=== PATIENT | female | born 1965 | race Caucasian/White ===

== ENCOUNTER → 2016-10-19 | Outpatient (CLI) | payer OTHER ==
[~2016-10-19] MED LIST: ALBUTEROL17 GM INH; ALEVE220 M1 PO; AUGMENTIN875 M1 PO; BACLOFEN10 MG PO; CARAFATE1 G PO; CARAFATE1 GM PO; CATAFLAM50 MG PO; COMBIVENT INH14.7 GM INH; COMBIVENT U/D3 M2 INH; DEXAMETHASONE4 MG PO; DICYCLOMINE HCL20 MG PO; DIFLUCAN100 MG PO; DOXYCYCLINE PO; DULERA 100 MCG/13 GM INH; FLEXERIL10 MG PO; FOLIC ACID1 MG PO; GABAPENTIN400 M2 PO; IBUPROFEN PM C1 EACH; IBUPROFEN PM C1 EACH PO; IBUPROFEN200 M1 PO; LANSOPRAZOLE30 M3 PO; LIDOCAINE15 GM; LORTAB 10-5001 EACH PO; MEDROL DOSEPAK4 MG PO; NICOTINE TRANSD21 MG EXT; NO MEDICATIONS; OXYCODONE HCL10 MG PO; OXYCODONE HCL5 M1 PO; PERCOCET 10/31 UDTA1 PO; PERCOCET PO; PERCOCET10 PO; PHENERGAN12.5 M1 PO; PHENERGAN25 MG PO; PREDNISONE PO; PRILOSEC20 M1 PO; PROAIR HFA8.5 GM IH; PROTONIX PO; ROBITUSSIN A-C10 ML PO; STIOLTO RESPIMAT4 GM INH; THIAMINE HCL100 MG PO; TRAZADONE; TUSSIONEX PENN473 ML PO; XANAX0.5 MG PO; ZOFRAN ODT4 MG PO; ZOFRAN PO; ZOFRAN8 MG PO; [UNRECOGNIZED DRUG - REMARK] PO
--- NOTE | ~2016-10-19 | CT55 ---
[facility] A Service of [facility] & [facility] RADIOLOGY TEXT RESULTS PATIENT: KELSEY KIMBALL [facility] [birth year] [facility] #: [id number] AGE: [address]: Isamar Langley MD SEX: F ORDER DR: [id number] [facility] [address] [place], [place] [address] [id number] O MR#: [id number] [facility] #: [id number] NAME: KELSEY KELLY : 1965 SEX: F STUDY DATE/TIME: 10/19/2016 14:29 UNIT: [facility] ROOM: STUDY DESCRIPTION: CT Chest W Con Attending Physician: Isamar Langley M.D. Referring Physician: Isamar Langley M.D. Ordering Physician: Isamar Langley M.D. Primary Care Physician: Serena Ritter M.D. MEDICAL IMAGING REPORT This report is preliminary unless electronic signature is present EXAM CT of the chest with contrast INDICATION Followup lung cancer. TECHNIQUE CT of the chest was performed following administration of IV contrast. Coronal and sagittal reformatted images were obtained. COMPARISON 07/15/[address] exam was performed with one or more of the following radiation dose reduction techniques: automatic exposure control, adjustment of mA and/or kV according to patient size, and iterative reconstruction. FINDINGS Emphysema. There is increasing perihilar density and bronchiectasis mainly within the superior segment of the left lower lobe. There is a small ground-glass opacity in the lung base of the left lower lobe on image 51 and some minimal ground-glass opacities in the left upper lobe on image 19. There is some minimal ground-glass opacities anteriorly in the right lung within the middle lobe and also the lower portion of the right upper lobe. There is no pleural effusion or suspicious lymphadenopathy. Limited imaging of the upper abdomen is unremarkable. Bone windows demonstrate healing or multiple healing rib fractures on the right. IMPRESSION 1. Increased perihilar density and bronchiectasis in the superior segment in the left lower lobe felt to represent increasing atelectasis/scarring from prior treatments. 2. There are scattered patchy ground-glass opacities in the lungs as STS. [facility] A Service of [facility] & [facility] RADIOLOGY TEXT RESULTS PATIENT: KEL[facility] KIMBALL [id number] [birth year] UNIT #: [id number] AGE: [address]: Isamar Langley MD SEX: F ORDER DR: described above likely infectious or inflammatory. 3. Stable underlying emphysema. 4. No lymphadenopathy. Dictated by... Moe Valles M.D. THIS IS AN ELECTRONICALLY VERIFIED REPORT Moe Valles M.D. at 10/21/2016 7:45 AM ROBERT/pal TD: 10/20/2016 18:25 JOB #: [id number] MEDICAL IMAGING REPORT Page 1 of 1 COPY
== END | disposition home or self-care (01) ==
LOC: CCAT 13:20
DX: C34.82 Malignant neoplasm of overlapping sites of left bronchus and lung (principal); C34.12 Malignant neoplasm of upper lobe, left bronchus or lung; J47.9 Bronchiectasis, uncomplicated; J43.9 Emphysema, unspecified; R22.1 Localized swelling, mass and lump, neck
CPT/HCPCS: 71260; Q9967

== ENCOUNTER → 2016-11-05 | Outpatient (CLI) | payer OTHER ==
--- NOTE | ~2016-11-05 | CT114 ---
[facility] A Service of [facility] & [facility] RADIOLOGY TEXT RESULTS PATIENT: KELSEY KIMBLAL LOCATION: [facility] : [birth year] UNIT #: [id number] AGE: [address]: Isamar Langley MD SEX: F ORDER DR: [id number] [facility] [address] [place], [place] [address] [id number] O MR#: [id number] Acc #: [id number] NAME: KELSEY KIMBALL : 1965 SEX: F STUDY DATE/TIME: 11/05/2016 14:21 UNIT: [facility] ROOM: STUDY DESCRIPTION: CT Soft Tissue Neck W Cont Attending Physician: Isamar Langley M.D. Referring Physician: Isamar Langley M.D. Ordering Physician: Isamar Langley M.D. Primary Care Physician: Serena Ritter M.D. MEDICAL IMAGING REPORT This report is preliminary unless electronic signature is present EXAM Soft tissue neck CT with contrast, 11/05/16. PROCEDURE Axial contrast-enhanced soft tissue neck CT with multiplanar reformats. This CT exam was performed with one or more of the following radiation dose reduction techniques: automatic exposure control, adjustment of mA and/or kV according to patient size, and iterative reconstruction. COMPARISON None. CLINICAL HISTORY Two week history of dysphasia, and right neck mass, history of lung cancer in August 2015. FINDINGS There are several highly suspicious right jugular chain lymph nodes. These demonstrate rim enhancement with central low density. There is a cluster of 2 or 3 along the right jugular chain, extending from the tail of the parotid to the angle of the mandible. There may be 1 up to 2.3 cm in maximal dimension, but there are no right jugular chain nodes below the hyoid and there are no left jugular chain nodes. There is a small enhancing lesion near the right glossopharyngeal fold, and there is right glossopharyngeal fold fullness, worrisome for a small squamous cell carcinoma, recommend correlation with physical exam. This may measure 13 mm or more in size. The vascular structures are remarkable for plaque at the right carotid bifurcation and left carotid bifurcation is probably 0% left and no more than 10 to 20% right ICA stenosis by NASCET criteria. [facility] A Service of [facility] & [facility] RADIOLOGY TEXT RESULTS PATIENT: KELSEY KIMBALL LOCATION: [facility] : 69 UNIT #: [id number] AGE: [address]: Isamar Langley MD SEX: F ORDER DR: The lung apices demonstrate emphysematous change, but no nodules. The bony structures are unremarkable. IMPRESSION 1. There is a small cluster of right level 2 suspicious lymph nodes with rim enhancement and low density centers, corresponding to the palpable abnormality and suspicious for metastatic adenopathy. These only involve the right level 2 and don't extend lower and there are no contralateral nodes. Question an enhancing mass in the region of right glossopharyngeal fold, up to 13 mm in size. Correlate with physical exam, but this may represent a squamous cell carcinoma and may be the source of the right jugular chain lymphadenopathy rather than the previous lung primary. 2. Again, no contralateral nodes are seen. Exam is otherwise unremarkable. Dictated by... Pablo Cai M.D. THIS IS AN ELECTRONICALLY VERIFIED REPORT Pablo Cai M.D. at 11/06/2016 2:16 PM MEÑO/judah TD: 11/05/2016 20:27 JOB #: [id number] MEDICAL IMAGING REPORT Page 1 of 1 COPY
== END | disposition home or self-care (01) ==
LOC: CCAT 12:55
DX: C34.82 Malignant neoplasm of overlapping sites of left bronchus and lung (principal)
CPT/HCPCS: 70491; Q9967

== ENCOUNTER → 2017-01-28 | Outpatient (CLI) | payer OTHER ==
[~2017-01-28] VITALS: Ht 162.6 cm; Wt 48.1 kg
--- NOTE | ~2017-01-28 | XA91 ---
[facility] A Service of [facility] & [facility] RADIOLOGY TEXT RESULTS PATIENT: KELSEY KIMBALL LOCATION: [facility] : 69 UNIT #: [id number] AGE: [address]: Otoniel Hudson MD SEX: F ORDER DR: [id number] [facility] [address] [place], [place] [address] [id number] O MR#: [id number] Acc #: [id number] NAME: KELSEY KIMBALL : 1965 SEX: F STUDY DATE/TIME: 01/28/2017 10:29 UNIT: [facility] ROOM: STUDY DESCRIPTION: XA CVC Tunneled W Port Attending Physician: Otoniel Hudson M.D. Ordering Physician: Otoniel Hudson M.D. Primary Care Physician: Ale Forrest M.D. MEDICAL IMAGING REPORT This report is preliminary unless electronic signature is present EXAM Fscamz-[id number]-[id number] catheter insertion 01/28/2017 HISTORY Recurrent lung cancer. PROCEDURE Informed consent was obtained. Full standard sterile technique was utilized, including sterile preparation, barrier draping, sterile gowns, gloves, caps and masks. Real-time sterile ultrasound guidance was used to both guide venous access and confirm vessel patency, and fluoroscopic guidance was used to confirm catheter tip position. Total fluoro time 0.4 minutes with a single spot image obtained. Fentanyl and Versed were administered for IV conscious sedation with hemodynamic monitor provided by the nursing staff throughout the procedure. The procedure total sedation time 45 minutes. Following local anesthesia, the right internal jugular vein was accessed via standard Seldinger technique, track dilated and a peel-away sheath inserted. A pocket was then created over the right upper chest after local anesthesia, and using a combination of blunt and sharp dissection. Port-A-Cath hub was inserted in the pocket, and then the catheter tunneled through the venotomy site, and then measured and cut to length and inserted via the peel-away sheath. The port was accessed, confirming blood return and easy flushing, and then it was packed with a heparin solution. The venotomy site was closed with deep fascial 3-0 Vicryl suture and N-butyl cyanoacrylate glue, and the hub pocket was closed with deep fascial 3-0 interrupted Vicryl suture and running subcuticular 4-0 Monocryl suture and N-butyl cyanoacrylate glue. There were no complications, and the patient tolerated the procedure well. [facility] A Service of [facility] RADIOLOGY TEXT RESULTS PATIENT: KELSEY KIMBALL LOCATION: [facility] : [birth year] UNIT #: [id number] AGE: [address]: Otoniel Hudson MD SEX: F ORDER DR: QI Successful fluoroscopic and ultrasound-guided insertion of a right IJ Cfzlqs-U-Tjgz catheter without complication. Dictated by... Pablo Cai M.D. THIS IS AN ELECTRONICALLY VERIFIED REPORT Pablo Cai M.D. at 01/29/2017 4:05 PM MEÑO/dayday TD: 01/28/2017 17:49 JOB #: [id number] MEDICAL IMAGING REPORT Page 1 of 1 COPY
[2017-01-28 08:31] LABS: HEMATOCRIT 40.1 % (35.0-45.0); HEMOGLOBIN 13.6 gm/dL (12.0-16.0); MEAN CELL VOLUME 94.8 FL (83-96); MEAN CORPUSCULAR HEMOGLOBIN 32.2 PG (28-34); MEAN PLATELET VOLUME 6.8 FL (6.5-11.5); RED BLOOD COUNT 4.23 X10e (3.90-5.30); RED CELL DISTRIBUTION WIDTH 14.3 % (11.0-15.5)
[2017-01-28 08:43] LABS: PARTIAL THROMBOPLASTIN TIME 28.7 SECONDS (23.5-31.3); PROTHROMBIN TIME (PATIENT) 11.2 SECONDS (10.0-11.7)
== END | disposition home or self-care (01) ==
LOC: CIVR 08:09
PROVIDERS: Radiology Radiation Oncology
PROC: 05HM33Z Insertion of Infusion Device into Right Internal Jugular Vein, Percutaneous Approach (ICD-10-PCS; principal; 2017-01-28)
DX: C09.1 Malignant neoplasm of tonsillar pillar (anterior) (posterior) (principal); C34.12 Malignant neoplasm of upper lobe, left bronchus or lung; Z45.2 Encounter for adjustment and management of vascular access device; R59.0 Localized enlarged lymph nodes; Z85.43 Personal history of malignant neoplasm of ovary; J45.909 Unspecified asthma, uncomplicated; Z79.899 Other long term (current) drug therapy; L81.8 Other specified disorders of pigmentation; L98.499 Non-pressure chronic ulcer of skin of other sites with unspecified severity; F10.10 Alcohol abuse, uncomplicated; Z87.01 Personal history of pneumonia (recurrent); Z91.018 Allergy to other foods
CPT/HCPCS: 36415; 76937; 77001; 85027; 85610; 85730; 99152; 99153; C1788; J0690; J1642; J2250; J3010